=== PATIENT | female | born 1935 | race African-American/Black ===

== ENCOUNTER 2024-11-17 14:24 | Emergency (ER) | payer OTHER ==
[~2024-11-17] VITALS: Ht 165.1 cm; Wt 80.0 kg
[2024-11-17 14:30] VITALS: BP 190/87; PULSE 78; RESP 18; O2SAT 99
[2024-11-17] MEDS ORDERED: ACETAMINOPHEN 325MG TABLET PO STA (14:43)
[2024-11-17 15:12] LABS: BASOPHILS % 0.8 % (0.0-2.0); EOSINOPHILS % 5.1 % (0.0-5.0); HEMOGLOBIN. 11.7 g/dL (12.0-16.0); LYMPHOCYTES % 26.4 % (20.0-50.0); MEAN CORPUSCULAR HEMOGLOBIN 27.4 pg (28.0-32.0); MEAN CORPUSCULAR HGB CONC 32.4 g/dL (31.0-37.0); MEAN CORPUSCULAR VOLUME 84.7 fL (81.0-99.0); MEAN PLATELET VOLUME 7.5 fl (7.4-10.4); MONOCYTES % 8.2 % (2.0-8.0); NEUTROPHILS % 59.5 % (40.0-76.0); PLATELET 286 x1000/uL (130-400); RED BLOOD CELL COUNT 4.25 mill/uL (4.2-5.4); RED CELL DISTRIBUTION WIDTH 16.9 % (11.6-14.6); WHITE BLOOD COUNT 11.8 x1000/uL (4.5-11.0)
[2024-11-17 15:17] LABS: POTASSIUM 4.2 mEq/L (3.5-5.1)
[2024-11-17 15:18] LABS: CALCIUM 10.2 mg/dL (8.7-10.4)
[2024-11-17 15:23] LABS: CREATININE 1.1 mg/dL (0.6-1.0)
[2024-11-17 16:59] VITALS: TEMP 98.3
[2024-11-17] MEDS: ACETAMINOPHEN 325MG TABLET PO NR (16:59)
== END 2024-11-17 17:50 | disposition home or self-care (01) ==
LOC: ER 14:24
DX: R51.9 Headache, unspecified (principal); E11.9 Type 2 diabetes mellitus without complications; I10 Essential (primary) hypertension; Z88.6 Allergy status to analgesic agent
CPT/HCPCS: 36415; 80048; 85025; 99284